=== PATIENT | female | born 1990 | race Caucasian/White ===

== ENCOUNTER 2016-07-11 01:11 | Emergency (ER) | payer MEDICARE, MEDICAID ==
[~2016-07-11 01:11] MED LIST: AMOXICILLIN 50500 MG PO; ATENOLOL25 MG PO; BACLOFEN10 M1 PO; CELEBREX100 MG PO; CLEOCIN HCL300 MG PO; CLONAZEPAM1 MG PO; CLONAZEPAM2 MG PO; CYMBALTA30 M1 PO; DEXAMETHASONE4 MG PO; DILAUDID4 M1 PO; FLEXERIL PO; FLEXERIL10 MG PO; HALDOL2 MG PO; IMIPRAMINE50 MG; KLONOPIN 1MG1 M1 PO; KLONOPIN1 MG PO; LASIX 20MG TABL20 MG PO; LEVSIN0.125 M1 SL; LIORESAL 1010 MG/TAB PO; LITHIUM 30300 MG/CAP PO; LORAZEPAM0.5 MG PO; LORTAB 5/500 501 TAB PO; LORTAB 7.5/5001 TAB PO; MACROBID 1100 MG/CAP PO; MACRODANTIN50 MG/CA1 PO; MEDROL 4MG DOSPA4 MG PO; METOCLOPRAMIDE10 MG PO; MOTRIN800 MG PO; NAPROSYN500 MG PO; NORCO 325 MG-101 TAB PO; NORCO 325 MG-51 TA1 PO; NORCO 325 MG-51 TAB PO; OMNICEF 300MG300 MG PO; ORPHENADRINE C100 MG PO; OXYBUTYNIN CHLOR5 MG PO; OXYCODONE5 M1 PO; PEN-V500 MG PO; PEN-VK500 MG PO; PERCOCET 325 MG1 TA2 PO; PERCOCET 325 MG1 TAB PO; PERCOCET 7.5/321 TA1 PO; PRILOSEC 20MG20 MG PO; PYRIDIUM200 M1 PO; SEROQUEL 2525 MG/TAB PO; TESSALON PERLE100 M1 PO; TOPROL XL25 MG PO; TOPROL-XL50 MG PO; TRAMADOL HYDRO100 MG PO; TYLENOL 325MG325 MG PO; ULTRAM 50MG TAB50 MG PO; ULTRAM50 MG PO; XANAX 1MG1 MG PO; XANAX0.5 MG PO; XANAX1 MG PO; XANAX2 MG PO; ZANAFLEX2 M1 PO; ZITHROMAX 250M250 MG PO
[2016-07-11 01:14] VITALS: BP 148/91
== END 2016-07-11 01:32 | disposition left against medical advice (07) ==
LOC: ED 01:11
DX: R52 Pain, unspecified (principal); Z91.81 History of falling

== ENCOUNTER 2016-07-14 01:37 | Emergency (ER) | payer MEDICARE, MEDICAID ==
[2016-07-14] MEDS ORDERED: BACLOFEN10 M1 PO (01:44)
[2016-07-14] MEDS ORDERED: ANAPROX DS550 M1 PO (05:47)
[2016-07-14] MEDS ORDERED: KLONOPIN 1MG1 MG PO (05:47)
[2016-07-14 05:55] VITALS: BP 124/71
== END 2016-07-14 05:55 | disposition home or self-care (01) ==
LOC: ED 01:37
DX: R29.810 Facial weakness (principal); F41.9 Anxiety disorder, unspecified; M25.511 Pain in right shoulder; F17.210 Nicotine dependence, cigarettes, uncomplicated

== ENCOUNTER 2016-07-23 17:36 | Emergency (ER) | payer MEDICARE, MEDICAID ==
[~2016-07-23 17:36] MED LIST changes: +ANAPROX DS550 M1 PO; +KLONOPIN 1MG1 MG PO
[2016-07-23 17:46] VITALS: BP 111/75
[2016-07-23] MEDS ORDERED: CLONAZEPAM2 MG PO (17:56)
[2016-07-23] MEDS ORDERED: LEXAPRO 10MG10 MG PO (17:57)
== END 2016-07-23 19:00 | disposition left against medical advice (07) ==
LOC: ED 17:36
DX: R04.2 Hemoptysis (principal); R07.89 Other chest pain; R05 Cough; R06.02 Shortness of breath; F41.9 Anxiety disorder, unspecified; Z91.5 Personal history of self-harm; F17.210 Nicotine dependence, cigarettes, uncomplicated

== ENCOUNTER 2017-04-05 15:39 | Emergency (ER) | payer MEDICARE, MEDICAID ==
[~2017-04-05] VITALS: Ht 162.6 cm; Wt 68.2 kg
[~2017-04-05 15:39] MED LIST changes: +LEXAPRO 10MG10 MG PO
[2017-04-05] MEDS ORDERED: GABAPENTIN TAB600 MG PO (15:50)
[2017-04-05] MEDS ORDERED: POTASSIUM CH2 MEQ/ML PO (17:13)
[2017-04-05 17:45] VITALS: BP 100/67
== END 2017-04-05 17:32 | disposition home or self-care (01) ==
LOC: ED 15:39
DX: E87.6 Hypokalemia (principal); R30.0 Dysuria; E16.2 Hypoglycemia, unspecified; R33.9 Retention of urine, unspecified; G89.29 Other chronic pain; R10.84 Generalized abdominal pain; M54.9 Dorsalgia, unspecified; G47.00 Insomnia, unspecified; F41.9 Anxiety disorder, unspecified
CPT/HCPCS: J7030

== ENCOUNTER 2017-08-02 02:09 | Emergency (ER) | payer MEDICARE, MEDICAID ==
[~2017-08-02 02:09] MED LIST changes: +GABAPENTIN TAB600 MG PO; +POTASSIUM CH2 MEQ/ML PO
[2017-08-02 02:10] VITALS: BP 100/63
== END 2017-08-02 03:10 | disposition left against medical advice (07) ==
LOC: ED 02:09
DX: R07.9 Chest pain, unspecified (principal); Z53.21 Procedure and treatment not carried out due to patient leaving prior to being seen by health care provider; R55 Syncope and collapse; F17.200 Nicotine dependence, unspecified, uncomplicated; F99 Mental disorder, not otherwise specified; Z88.1 Allergy status to other antibiotic agents; Z88.5 Allergy status to narcotic agent; Z88.2 Allergy status to sulfonamides; Z88.8 Allergy status to other drugs, medicaments and biological substances

== ENCOUNTER 2017-09-27 20:55 | Emergency (ER) | payer MEDICARE, MEDICAID ==
[~2017-09-27] VITALS: Ht 162.6 cm; Wt 79.5 kg
[2017-09-27] MEDS ORDERED: DOXYCYCLINE MO100 M2 PO (22:23)
[2017-09-27] MEDS ORDERED: CORLANOR5 MG PO (22:23)
[2017-09-27] MEDS ORDERED: DICLOFENAC SOD50 MG PO (22:24)
[2017-09-27 23:27] VITALS: BP 120/74
== END 2017-09-27 23:27 | disposition home or self-care (01) ==
LOC: ED 20:55
DX: R07.89 Other chest pain (principal); R10.12 Left upper quadrant pain; R07.1 Chest pain on breathing; R05 Cough

== ENCOUNTER 2017-09-30 03:50 | Emergency (ER) | payer MEDICARE, MEDICAID ==
[~2017-09-30] VITALS: Ht 162.6 cm; Wt 79.5 kg
[~2017-09-30 03:50] MED LIST changes: +CORLANOR5 MG PO; +DICLOFENAC SOD50 MG PO; +DOXYCYCLINE MO100 M2 PO
[2017-09-30 04:38] LABS: BASO # 0.1 (0.02-0.10); EOS # 0.3 (0.04-0.40); EOS % 3.1 % (1.0-5.0); HEMATOCRIT 38.8 % (37.0-47.0); LYMPH# 4.3 (1.50-4.00); MEAN CELL VOLUME 97 fl (78-100); MEAN CORPUSCULAR HEMOGLOBIN 32 pg (27-31); MEAN CORPUSCULAR HGB CONC 34 g/dL (33-37); MEAN PLATELET VOLUME 9.9 fl (7.4-10.4); MONO # 0.6 (0.20-0.80); NEU # 3.2 (1.40-6.50); PLATELET COUNT 227 K/mm3 (130-400); RED BLOOD COUNT 4.01 M/mm3 (4.10-5.30); RED CELL DISTRIBUTION WIDTH 13.3 % (11.5-14.5); WHITE BLOOD COUNT 8.5 K/mm3 (4.8-10.8)
[2017-09-30 04:48] LABS: ALBUMIN 3.9 g/dL (3.5-5.0); BUN/CREATININE RATIO 14.1 (6.0-26.0); CALCIUM 8.6 mg/dL (8.4-10.2); POTASSIUM 3.6 mmol/L (3.6-5.0); TOTAL BILIRUBIN 0.2 mg/dL (0.2-1.3); TOTAL PROTEIN 7.4 g/dL (6.3-8.2)
[2017-09-30 05:41] LABS: URINE APPEARANCE CLEAR; URINE BILIRUBIN NEGATIVE (NEGATIVE); URINE BLOOD NEGATIVE (NEGATIVE); URINE COLOR YELLOW; URINE GLUCOSE NEGATIVE (NEGATIVE); URINE KETONE NEGATIVE (NEGATIVE); URINE LEUKOCYTE ESTERASE NEGATIVE (NEGATIVE); URINE NITRATE NEGATIVE (NEGATIVE); URINE PROTEIN(semi-quant) NEGATIVE (NEGATIVE); URINE UROBILINOGEN NORMAL (NORMAL); URINE WBC 0-1 /hpf (0-3)
[2017-09-30 06:40] VITALS: BP 127/70
== END 2017-09-30 06:40 | disposition home or self-care (01) ==
LOC: ED 03:50
PROVIDERS: Nurse Practitioner
DX: R07.9 Chest pain, unspecified (principal); R00.1 Bradycardia, unspecified; F17.200 Nicotine dependence, unspecified, uncomplicated; M26.609 Unspecified temporomandibular joint disorder, unspecified side; R06.02 Shortness of breath; R53.1 Weakness; R07.1 Chest pain on breathing; R53.83 Other fatigue; Z88.1 Allergy status to other antibiotic agents; Z88.5 Allergy status to narcotic agent; Z88.2 Allergy status to sulfonamides; Z88.8 Allergy status to other drugs, medicaments and biological substances
CPT/HCPCS: J7030

== ENCOUNTER 2017-10-27 15:08 | Emergency (ER) | payer MEDICARE, MEDICAID ==
[2017-10-27 15:13] VITALS: BP 125/90
[2017-10-27] MEDS ORDERED: AMOXICILLIN 50500 MG PO (15:20)
[2017-10-27] MEDS ORDERED: GABAPENTIN TAB600 MG PO (15:21)
[2017-10-27] MEDS ORDERED: PREDNISONE20 M1 PO (15:53)
== END 2017-10-27 16:05 | disposition home or self-care (01) ==
LOC: ED 15:08
DX: L50.9 Urticaria, unspecified (principal); T40.4X5A Adverse effect of other synthetic narcotics, initial encounter; F17.200 Nicotine dependence, unspecified, uncomplicated

== ENCOUNTER 2017-11-08 03:30 | Emergency (ER) | payer MEDICARE, MEDICAID ==
[~2017-11-08 03:30] MED LIST changes: +PREDNISONE20 M1 PO
[2017-11-08] MEDS ORDERED: CEPHALEXIN500 M2 PO (03:40)
[2017-11-08] MEDS ORDERED: NORCO 325 MG-51 TA1 PO (04:54)
[2017-11-08] MEDS ORDERED: CLEOCIN HC150 MG/CAP PO (04:54)
[2017-11-08 05:08] VITALS: BP 126/75
== END 2017-11-08 05:08 | disposition home or self-care (01) ==
LOC: ED 03:30
DX: M27.3 Alveolitis of jaws (principal)

== ENCOUNTER 2018-02-10 01:48 | Emergency (ER) | payer MEDICARE, MEDICAID ==
[~2018-02-10 01:48] MED LIST changes: +CEPHALEXIN500 M2 PO; +CLEOCIN HC150 MG/CAP PO
[2018-02-10 03:31] LABS: ALBUMIN 3.9 g/dL (3.5-5.0); BASO # 0.1 (0.02-0.10); CALCIUM 8.7 mg/dL (8.4-10.2); EOS # 0.3 (0.04-0.40); EOS % 3.1 % (1.0-5.0); HEMATOCRIT 38.5 % (37.0-47.0); HEMOGLOBIN 13.1 g/dL (12.5-16.0); LYMPH# 3.2 (1.50-4.00); MEAN CELL VOLUME 99 fl (78-100); MEAN CORPUSCULAR HEMOGLOBIN 34 pg (27-31); MEAN CORPUSCULAR HGB CONC 34 g/dL (33-37); MEAN PLATELET VOLUME 9.9 fl (7.4-10.4); MONO # 0.8 (0.20-0.80); PLATELET COUNT 269 K/mm3 (130-400); POTASSIUM 3.6 mmol/L (3.6-5.0); RED CELL DISTRIBUTION WIDTH 12.7 % (11.5-14.5); TOTAL BILIRUBIN 0.2 mg/dL (0.2-1.3); TOTAL PROTEIN 6.9 g/dL (6.3-8.2); WHITE BLOOD COUNT 8.3 K/mm3 (4.8-10.8)
[2018-02-10 03:32] LABS: PH-URINE 6.5 (5.0 - 8.0); URINE APPEARANCE CLEAR; URINE BILIRUBIN NEGATIVE (NEGATIVE); URINE BLOOD NEGATIVE (NEGATIVE); URINE COLOR LT YELLOW; URINE GLUCOSE NEGATIVE (NEGATIVE); URINE KETONE NEGATIVE (NEGATIVE); URINE LEUKOCYTE ESTERASE NEGATIVE (NEGATIVE); URINE NITRATE NEGATIVE (NEGATIVE); URINE PROTEIN(semi-quant) NEGATIVE (NEGATIVE); URINE UROBILINOGEN NORMAL (NORMAL)
[2018-02-10 03:38] LABS: URINE WBC 0-1 /hpf (0-3)
[2018-02-10] MEDS ORDERED: PHENERGAN 25 TA25 MG PO (04:08)
[2018-02-10 04:15] VITALS: BP 123/90
== END 2018-02-10 04:15 | disposition home or self-care (01) ==
LOC: ED 01:48
PROVIDERS: Physician Assistant
DX: A08.4 Viral intestinal infection, unspecified (principal); F17.210 Nicotine dependence, cigarettes, uncomplicated; Z79.899 Other long term (current) drug therapy
CPT/HCPCS: J2550; J3010; Q9967

== ENCOUNTER 2018-06-30 05:09 | Emergency (ER) | payer MEDICARE, MEDICAID ==
[~2018-06-30 05:09] MED LIST changes: +PHENERGAN 25 TA25 MG PO
[2018-06-30 05:15] VITALS: BP 142/99
[2018-06-30] MEDS ORDERED: KLONOPIN 0.5MG0.5 MG PO (05:21)
== END 2018-06-30 06:38 | disposition left against medical advice (07) ==
LOC: ED 05:09
DX: M54.5 Low back pain (principal); Z53.21 Procedure and treatment not carried out due to patient leaving prior to being seen by health care provider; R07.89 Other chest pain; F41.9 Anxiety disorder, unspecified; F32.9 Major depressive disorder, single episode, unspecified; Z87.442 Personal history of urinary calculi; Z87.448 Personal history of other diseases of urinary system; Z79.899 Other long term (current) drug therapy; F17.200 Nicotine dependence, unspecified, uncomplicated; Z88.1 Allergy status to other antibiotic agents; Z88.5 Allergy status to narcotic agent; Z88.8 Allergy status to other drugs, medicaments and biological substances

== ENCOUNTER 2018-12-11 05:41 | Emergency (ER) | payer MEDICARE, MEDICAID ==
[~2018-12-11 05:41] MED LIST changes: +KLONOPIN 0.5MG0.5 MG PO
[2018-12-11 07:07] LABS: BASO # 0.1 (0.02-0.10); EOS # 0.2 (0.04-0.40); EOS % 2.3 % (1.0-5.0); HEMATOCRIT 41.9 % (37.0-47.0); HEMOGLOBIN 14.1 g/dL (12.5-16.0); LYMPH# 2.9 (1.50-4.00); MEAN CELL VOLUME 97 fl (78-100); MEAN CORPUSCULAR HEMOGLOBIN 33 pg (27-31); MEAN CORPUSCULAR HGB CONC 34 g/dL (33-37); MEAN PLATELET VOLUME 9.9 fl (7.4-10.4); MONO # 0.5 (0.20-0.80); NEU # 3.5 (1.40-6.50); PLATELET COUNT 322 K/mm3 (130-400); RED BLOOD COUNT 4.32 M/mm3 (4.10-5.30); RED CELL DISTRIBUTION WIDTH 13.3 % (11.5-14.5); WHITE BLOOD COUNT 7.3 K/mm3 (4.8-10.8)
[2018-12-11 07:14] LABS: GLUCOSE 105 mg/dL (65-105)
[2018-12-11 07:15] LABS: ALBUMIN 4.4 g/dL (3.5-5.0); CARBON DIOXIDE 22 mmol/L (22-29)
[2018-12-11 07:16] LABS: CALCIUM 9.3 mg/dL (8.3-10.5); SODIUM 139 mmol/L (136-145); TOTAL BILIRUBIN 0.5 mg/dL (0.2-1.2)
[2018-12-11 07:18] LABS: AST-SGOT 19 U/L (5-34)
[2018-12-11 07:19] LABS: ALT/SGPT 19 U/L (0-55)
[2018-12-11 07:21] LABS: TROPONIN-I < 0.03 ng/mL (<0.030)
[2018-12-11 07:27] LABS: URINE APPEARANCE CLEAR; URINE BILIRUBIN NEGATIVE (NEGATIVE); URINE BLOOD NEGATIVE (NEGATIVE); URINE COLOR YELLOW; URINE GLUCOSE NEGATIVE (NEGATIVE); URINE KETONE NEGATIVE (NEGATIVE); URINE LEUKOCYTE ESTERASE NEGATIVE (NEGATIVE); URINE NITRATE NEGATIVE (NEGATIVE); URINE PROTEIN(semi-quant) NEGATIVE (NEGATIVE); URINE UROBILINOGEN NORMAL (NORMAL)
[2018-12-11 08:25] VITALS: BP 123/87
== END 2018-12-11 08:25 | disposition home or self-care (01) ==
LOC: ED 05:41
PROVIDERS: Physician Assistant
DX: M25.562 Pain in left knee (principal); R55 Syncope and collapse; F41.9 Anxiety disorder, unspecified; Z90.89 Acquired absence of other organs; Z88.1 Allergy status to other antibiotic agents; W10.9XXA Fall (on) (from) unspecified stairs and steps, initial encounter

== ENCOUNTER 2019-03-12 05:58 | Emergency (ER) | payer MEDICARE, MEDICAID ==
[2019-03-12] MEDS ORDERED: AMBIEN5 M1 PO (06:08)
[2019-03-12 08:28] VITALS: BP 124/87
== END 2019-03-12 08:29 | disposition home or self-care (01) ==
LOC: ED 05:58
DX: S91.311A Laceration without foreign body, right foot, initial encounter (principal); F41.9 Anxiety disorder, unspecified; F32.9 Major depressive disorder, single episode, unspecified; Z23 Encounter for immunization; W27.2XXA Contact with scissors, initial encounter; W20.8XXA Other cause of strike by thrown, projected or falling object, initial encounter; Y93.G1 Activity, food preparation and clean up; Y92.000 Kitchen of unspecified non-institutional (private) residence as the place of occurrence of the external cause
CPT/HCPCS: 90715

== ENCOUNTER 2019-03-25 11:49 | Emergency (ER) | payer MEDICARE, MEDICAID ==
[~2019-03-25 11:49] MED LIST changes: +AMBIEN5 M1 PO
[2019-03-25 12:02] VITALS: BP 144/110
== END 2019-03-25 12:04 | disposition home or self-care (01) ==
LOC: ED 11:49
DX: S91.311D Laceration without foreign body, right foot, subsequent encounter (principal)

== ENCOUNTER 2019-05-06 23:40 | Emergency (ER) | payer MEDICARE, MEDICAID ==
[~2019-05-06] VITALS: Ht 154.9 cm; Wt 99.4 kg
[2019-05-06] MEDS ORDERED: REMERON15 MG PO (23:50)
[2019-05-06] MEDS ORDERED: SERTRALINE HYD100 MG PO (23:50)
[2019-05-06] MEDS ORDERED: KLONOPIN 1MG1 MG PO (23:51)
[2019-05-06] MEDS ORDERED: MACROBID 100 M100 MG PO (23:51)
[2019-05-07 01:40] VITALS: BP 115/81
== END 2019-05-07 01:40 | disposition home or self-care (01) ==
LOC: ED 23:40
DX: F43.9 Reaction to severe stress, unspecified (principal); F91.9 Conduct disorder, unspecified; F41.9 Anxiety disorder, unspecified; F32.9 Major depressive disorder, single episode, unspecified; F17.210 Nicotine dependence, cigarettes, uncomplicated

== ENCOUNTER 2019-05-10 00:17 | Emergency (ER) | payer MEDICARE, MEDICAID ==
[~2019-05-10] VITALS: Ht 152.4 cm; Wt 98.6 kg
[~2019-05-10 00:17] MED LIST changes: +MACROBID 100 M100 MG PO; +REMERON15 MG PO; +SERTRALINE HYD100 MG PO
[2019-05-10] MEDS ORDERED: LORAZEPAM1 M1 PO (00:25)
[2019-05-10] MEDS ORDERED: MINIPRESS 1M1 MG/CAP PO (00:25)
[2019-05-10 01:39] VITALS: BP 145/82
== END 2019-05-10 01:40 | disposition home or self-care (01) ==
LOC: ED 00:17
DX: G44.209 Tension-type headache, unspecified, not intractable (principal); F32.9 Major depressive disorder, single episode, unspecified; F41.9 Anxiety disorder, unspecified; G47.00 Insomnia, unspecified; Z72.89 Other problems related to lifestyle; Z88.1 Allergy status to other antibiotic agents; Z88.6 Allergy status to analgesic agent; Z88.8 Allergy status to other drugs, medicaments and biological substances

== ENCOUNTER 2019-05-28 00:09 | Emergency (ER) | payer MEDICARE, MEDICAID ==
[~2019-05-28 00:09] MED LIST changes: +LORAZEPAM1 M1 PO; +MINIPRESS 1M1 MG/CAP PO
[2019-05-28] MEDS ORDERED: BACLOFEN5 MG PO (00:28)
[2019-05-28 01:10] LABS: BASO # 0.1 (0.02-0.10); EOS # 0.3 (0.04-0.40); EOS % 2.7 % (1.0-5.0); HEMOGLOBIN 14.1 g/dL (12.5-16.0); LYMPH# 3.1 (1.50-4.00); MEAN CELL VOLUME 95 fl (78-100); MEAN CORPUSCULAR HEMOGLOBIN 32 pg (27-31); MEAN CORPUSCULAR HGB CONC 34 g/dL (33-37); MEAN PLATELET VOLUME 9.6 fl (7.4-10.4); MONO # 0.7 (0.20-0.80); NEU # 5.1 (1.40-6.50); PLATELET COUNT 399 K/mm3 (130-400); RED BLOOD COUNT 4.43 M/mm3 (4.10-5.30); RED CELL DISTRIBUTION WIDTH 13.6 % (11.5-14.5); WHITE BLOOD COUNT 9.2 K/mm3 (4.8-10.8)
[2019-05-28 01:13] LABS: ALBUMIN 4.4 g/dL (3.5-5.0); SODIUM 142 mmol/L (136-145)
[2019-05-28 01:15] LABS: CALCIUM 9.5 mg/dL (8.3-10.5)
[2019-05-28 01:16] LABS: GLUCOSE 108 mg/dL (65-105)
[2019-05-28 01:17] LABS: CARBON DIOXIDE 19 mmol/L (22-29)
[2019-05-28 01:18] LABS: TOTAL BILIRUBIN 0.3 mg/dL (0.2-1.2)
[2019-05-28 01:19] LABS: ALCOHOL IN-HOUSE 99 mg/dL (<10)
[2019-05-28 01:21] LABS: AST-SGOT 22 U/L (5-34)
[2019-05-28 01:23] LABS: ALT/SGPT 26 U/L (0-55)
[2019-05-28 01:44] LABS: ACETAMINOPHEN < 1 ug/mL
[2019-05-28 04:33] VITALS: BP 125/84
== END 2019-05-28 04:56 | disposition short-term general hospital (02) ==
LOC: ED 00:09
PROVIDERS: Nurse Practitioner Family
DX: T42.8X2A Poisoning by antiparkinsonism drugs and other central muscle-tone depressants, intentional self-harm, initial encounter (principal); F32.9 Major depressive disorder, single episode, unspecified; F41.9 Anxiety disorder, unspecified; F17.210 Nicotine dependence, cigarettes, uncomplicated
CPT/HCPCS: J7030

== ENCOUNTER 2020-07-04 16:29 | Emergency (ER) | payer MEDICARE, MEDICAID ==
[~2020-07-04 16:29] MED LIST changes: +BACLOFEN5 MG PO
[2020-07-04] MEDS ORDERED: FLUOXETINE HCL20 MG PO (16:45)
[2020-07-04 18:46] LABS: EOS % 0.4 % (1.0-5.0); HEMATOCRIT 40.5 % (37.0-47.0); HEMOGLOBIN 13.5 g/dL (12.5-16.0); LYMPH# 2.3 (1.50-4.00); MEAN CELL VOLUME 91 fl (78-100); MEAN CORPUSCULAR HEMOGLOBIN 30 pg (27-31); MEAN CORPUSCULAR HGB CONC 33 g/dL (33-37); MEAN PLATELET VOLUME 9.3 fl (7.4-10.4); MONO # 0.5 (0.20-0.80); NEU # 4.9 (1.40-6.50); PLATELET COUNT 304 K/mm3 (130-400); RED BLOOD COUNT 4.47 M/mm3 (4.10-5.30); WHITE BLOOD COUNT 7.8 K/mm3 (4.8-10.8)
[2020-07-04 18:55] LABS: ALBUMIN 4.6 g/dL (3.5-5.0); POTASSIUM 3.9 mmol/L (3.5-5.1)
[2020-07-04 18:56] LABS: CALCIUM 9.6 mg/dL (8.3-10.5)
[2020-07-04 18:57] LABS: TOTAL PROTEIN 7.8 g/dL (6.4-8.3)
[2020-07-04 18:59] LABS: TOTAL BILIRUBIN 0.4 mg/dL (0.2-1.2)
[2020-07-04 20:06] LABS: D-DIMER 0.02 mg/L FEU (0.15-0.50)
[2020-07-04] MEDS ORDERED: ATIVAN0.5 MG PO (20:49)
[2020-07-04 21:26] VITALS: BP 170/103
[2020-07-08] MEDS ORDERED: HYDROXYZINE HYD50 M1 PO (02:35)
[2020-07-08] MEDS ORDERED: ARIPIPRAZOLE10 M1 PO (02:35)
== END 2020-07-04 21:25 | disposition home or self-care (01) ==
LOC: ED 16:29
PROVIDERS: Physician Assistant
DX: F41.9 Anxiety disorder, unspecified (principal); Z81.8 Family history of other mental and behavioral disorders; Z88.6 Allergy status to analgesic agent; Z88.2 Allergy status to sulfonamides; Z88.1 Allergy status to other antibiotic agents; Z88.8 Allergy status to other drugs, medicaments and biological substances

== ENCOUNTER 2020-07-24 03:08 | Emergency (ER) | payer MEDICARE, MEDICAID ==
[~2020-07-24] VITALS: Ht 162.6 cm; Wt 103.2 kg
[~2020-07-24 03:08] MED LIST changes: +ARIPIPRAZOLE10 M1 PO; +ATIVAN0.5 MG PO; +FLUOXETINE HCL20 MG PO; +HYDROXYZINE HYD50 M1 PO
[2020-07-24] MEDS ORDERED: BACLOFEN10 M1 PO (03:24)
[2020-07-24] MEDS ORDERED: ATIVAN2 MG PO (03:24)
[2020-07-24] MEDS ORDERED: LABETALOL HCL100 MG PO (03:26)
[2020-07-24 04:45] VITALS: BP 126/84
== END 2020-07-24 04:45 | disposition home or self-care (01) ==
LOC: ED 03:08
DX: F41.8 Other specified anxiety disorders (principal); F32.9 Major depressive disorder, single episode, unspecified; F43.10 Post-traumatic stress disorder, unspecified; Z88.1 Allergy status to other antibiotic agents; Z88.2 Allergy status to sulfonamides; Z88.5 Allergy status to narcotic agent; Z88.6 Allergy status to analgesic agent; Z88.8 Allergy status to other drugs, medicaments and biological substances

== ENCOUNTER 2020-07-26 03:43 | Emergency (ER) | payer MEDICARE, MEDICAID ==
[~2020-07-26 03:43] MED LIST changes: +ATIVAN2 MG PO; +LABETALOL HCL100 MG PO
[2020-07-26 04:57] VITALS: BP 133/89
== END 2020-07-26 04:58 | disposition home or self-care (01) ==
LOC: ED 03:43
DX: S51.812A Laceration without foreign body of left forearm, initial encounter (principal); Z88.1 Allergy status to other antibiotic agents; Z88.2 Allergy status to sulfonamides; Z88.6 Allergy status to analgesic agent; Z88.8 Allergy status to other drugs, medicaments and biological substances; X15.0XXA Contact with hot stove (kitchen), initial encounter

== ENCOUNTER 2020-08-05 11:41 | Emergency (ER) | payer MEDICARE, MEDICAID ==
[~2020-08-05] VITALS: Wt 106.1 kg
[~2020-08-05 11:41] MED LIST changes: -ROXICODONE 55 MG/TAB PO
[2020-08-05] MEDS ORDERED: CLONAZEPAM2 MG PO (12:00)
[2020-08-05] MEDS ORDERED: ROXICODONE 55 MG/TAB PO (12:00)
[2020-08-05 12:54] LABS: EOS # 0.2 (0.04-0.40); EOS % 2.7 % (1.0-5.0); HEMATOCRIT 39.5 % (37.0-47.0); HEMOGLOBIN 12.8 g/dL (12.5-16.0); LYMPH# 1.4 (1.50-4.00); MEAN CELL VOLUME 95 fl (78-100); MEAN CORPUSCULAR HEMOGLOBIN 31 pg (27-31); MEAN CORPUSCULAR HGB CONC 32 g/dL (33-37); MEAN PLATELET VOLUME 9.9 fl (7.4-10.4); MONO # 0.7 (0.20-0.80); NEU # 5.5 (1.40-6.50); PLATELET COUNT 289 K/mm3 (130-400); RED BLOOD COUNT 4.15 M/mm3 (4.10-5.30); RED CELL DISTRIBUTION WIDTH 14.4 % (11.5-14.5); WHITE BLOOD COUNT 7.9 K/mm3 (4.8-10.8)
[2020-08-05 13:30] LABS: PH-URINE 5.5 (5.0 - 8.0); URINE APPEARANCE CLEAR; URINE COLOR YELLOW; URINE PROTEIN(semi-quant) TRACE mg/dL (NEGATIVE)
[2020-08-05 13:31] LABS: URINE BILIRUBIN NEGATIVE (NEGATIVE); URINE BLOOD 50 ery/uL (NEGATIVE); URINE GLUCOSE NEGATIVE (NEGATIVE); URINE KETONE 1+ (NEGATIVE); URINE LEUKOCYTE ESTERASE 2+ (NEGATIVE); URINE NITRATE POSITIVE (NEGATIVE); URINE UROBILINOGEN NORMAL (NORMAL)
[2020-08-05 13:38] LABS: URINE WBC >50 /hpf (0-3)
[2020-08-05] MEDS ORDERED: MACROBID 100 M100 MG PO (13:51)
[2020-08-05 14:04] VITALS: BP 136/87
== END 2020-08-05 14:10 | disposition home or self-care (01) ==
LOC: ED 11:41
PROVIDERS: Family Medicine
DX: M79.632 Pain in left forearm (principal); N39.0 Urinary tract infection, site not specified

== ENCOUNTER → 2020-08-05 | Outpatient (CLI) | payer MEDICARE, MEDICAID ==
[~2020-08-05] MED LIST changes: -FLUOXETINE HCL20 MG PO; +FLUOXETINE40 MG PO; +ROXICODONE 55 MG/TAB PO
[2020-08-05 11:46] VITALS: BP 133/86
== END ==
LOC: LAB 13:19
DX: R82.5 Elevated urine levels of drugs, medicaments and biological substances (principal)

== ENCOUNTER 2020-08-13 05:50 | Emergency (ER) | payer MEDICARE, MEDICAID ==
[~2020-08-13 05:50] MED LIST changes: +ROXICODONE 55 MG/TAB PO
[2020-08-13] MEDS ORDERED: HYDROXYZINE HYD50 M1 PO (06:07)
[2020-08-13] MEDS ORDERED: PROZAC20 M1 PO (06:08)
[2020-08-13 07:10] LABS: EOS # 0.1 (0.04-0.40); EOS % 1.5 % (1.0-5.0); HEMATOCRIT 40.6 % (37.0-47.0); HEMOGLOBIN 13.1 g/dL (12.5-16.0); LYMPH# 1.8 (1.50-4.00); MEAN CELL VOLUME 95 fl (78-100); MEAN CORPUSCULAR HEMOGLOBIN 31 pg (27-31); MEAN CORPUSCULAR HGB CONC 32 g/dL (33-37); MEAN PLATELET VOLUME 10.4 fl (7.4-10.4); MONO # 0.9 (0.20-0.80); NEU # 5.5 (1.40-6.50); PLATELET COUNT 334 K/mm3 (130-400); RED BLOOD COUNT 4.26 M/mm3 (4.10-5.30); RED CELL DISTRIBUTION WIDTH 14.4 % (11.5-14.5); WHITE BLOOD COUNT 8.4 K/mm3 (4.8-10.8)
[2020-08-13 07:18] LABS: ALBUMIN 4.3 g/dL (3.5-5.0); POTASSIUM 3.7 mmol/L (3.5-5.1); SODIUM 142 mmol/L (136-145)
[2020-08-13 07:19] LABS: CALCIUM 9.7 mg/dL (8.3-10.5)
[2020-08-13 07:21] LABS: GLUCOSE 88 mg/dL (65-105); TOTAL PROTEIN 7.6 g/dL (6.4-8.3)
[2020-08-13 07:22] LABS: CARBON DIOXIDE 24 mmol/L (22-29); TOTAL BILIRUBIN 0.2 mg/dL (0.2-1.2)
[2020-08-13 07:25] LABS: PH-URINE 6.5 (5.0 - 8.0); URINE APPEARANCE HAZY; URINE BILIRUBIN NEGATIVE (NEGATIVE); URINE BLOOD TRACE (NEGATIVE); URINE COLOR LT YELLOW; URINE GLUCOSE NEGATIVE (NEGATIVE); URINE KETONE NEGATIVE (NEGATIVE); URINE LEUKOCYTE ESTERASE TRACE (NEGATIVE); URINE NITRATE NEGATIVE (NEGATIVE); URINE PROTEIN(semi-quant) NEGATIVE (NEGATIVE); URINE UROBILINOGEN NORMAL (NORMAL); URINE WBC 0-1 /hpf (0-3)
[2020-08-13 07:26] LABS: ALCOHOL IN-HOUSE < 10 mg/dL (<10); AST-SGOT 21 U/L (5-34)
[2020-08-13 07:27] LABS: ALT/SGPT 14 U/L (0-55)
[2020-08-13 07:57] LABS: ACETAMINOPHEN < 1 ug/mL
[2020-08-13 10:56] VITALS: BP 139/89
== END 2020-08-13 10:06 | disposition short-term general hospital (02) ==
LOC: ED 05:50
PROVIDERS: Family Medicine
DX: T43.592A Poisoning by other antipsychotics and neuroleptics, intentional self-harm, initial encounter (principal); T42.8X2A Poisoning by antiparkinsonism drugs and other central muscle-tone depressants, intentional self-harm, initial encounter; T42.4X2A Poisoning by benzodiazepines, intentional self-harm, initial encounter; T40.2X2A Poisoning by other opioids, intentional self-harm, initial encounter; F43.23 Adjustment disorder with mixed anxiety and depressed mood; Z20.822 Contact with and (suspected) exposure to COVID-19
CPT/HCPCS: J2310

== ENCOUNTER 2020-08-20 02:45 | Emergency (ER) | payer MEDICARE, MEDICAID ==
[~2020-08-20 02:45] MED LIST changes: +PROZAC20 M1 PO
[2020-08-20] MEDS ORDERED: BUSPAR 15MG TAB15 MG PO (03:06)
[2020-08-20] MEDS ORDERED: WELLBUTRIN SR150 M3 PO (03:07)
[2020-08-20 04:13] LABS: HEMATOCRIT 44.5 % (37.0-47.0); HEMOGLOBIN 15.2 g/dL (12.5-16.0); MEAN CELL VOLUME 91 fl (78-100); MEAN CORPUSCULAR HEMOGLOBIN 31 pg (27-31); RED BLOOD COUNT 4.89 M/mm3 (4.10-5.30); WHITE BLOOD COUNT 11.8 K/mm3 (4.8-10.8)
[2020-08-20 04:14] LABS: EOS # 0.4 (0.04-0.40); EOS % 3.4 % (1.0-5.0); LYMPH# 3.8 (1.50-4.00); MEAN CORPUSCULAR HGB CONC 34 g/dL (33-37); MEAN PLATELET VOLUME 10.4 fl (7.4-10.4); MONO # 1.1 (0.20-0.80); NEU # 6.5 (1.40-6.50); PLATELET COUNT 269 K/mm3 (130-400); RED CELL DISTRIBUTION WIDTH 12.9 % (11.5-14.5)
[2020-08-20] MEDS ORDERED: HYDROCODONE AN473 M1 PO (04:32)
[2020-08-20 04:45] VITALS: BP 111/80
== END 2020-08-20 04:45 | disposition home or self-care (01) ==
LOC: ED 02:45
PROVIDERS: Family Medicine
DX: R05 Cough (principal); R13.10 Dysphagia, unspecified; Z88.1 Allergy status to other antibiotic agents; Z88.2 Allergy status to sulfonamides; Z88.6 Allergy status to analgesic agent; Z88.8 Allergy status to other drugs, medicaments and biological substances

== ENCOUNTER 2020-08-23 17:35 | Emergency (ER) | payer MEDICARE, MEDICAID ==
[~2020-08-23 17:35] MED LIST changes: +BUSPAR 15MG TAB15 MG PO; +HYDROCODONE AN473 M1 PO; +WELLBUTRIN SR150 M3 PO
[2020-08-23 18:45] LABS: HEMATOCRIT 41.2 % (37.0-47.0); HEMOGLOBIN 13.8 g/dL (12.5-16.0); RED BLOOD COUNT 4.43 M/mm3 (4.10-5.30); WHITE BLOOD COUNT 9.1 K/mm3 (4.8-10.8)
[2020-08-23 18:46] LABS: MEAN CELL VOLUME 93 fl (78-100); MEAN CORPUSCULAR HEMOGLOBIN 31 pg (27-31); MEAN CORPUSCULAR HGB CONC 34 g/dL (33-37); MEAN PLATELET VOLUME 9.6 fl (7.4-10.4); PLATELET COUNT 347 K/mm3 (130-400); RED CELL DISTRIBUTION WIDTH 13.2 % (11.5-14.5)
[2020-08-23 18:47] LABS: BASO # 0.1 (0.02-0.10); EOS # 0.2 (0.04-0.40); EOS % 2.3 % (1.0-5.0); LYMPH# 3.2 (1.50-4.00); MONO # 0.7 (0.20-0.80)
[2020-08-23 18:50] LABS: POTASSIUM 3.6 mmol/L (3.5-5.1)
[2020-08-23 18:51] LABS: CALCIUM 9.1 mg/dL (8.3-10.5)
[2020-08-23 18:52] LABS: TOTAL PROTEIN 7.2 g/dL (6.4-8.3)
[2020-08-23 18:54] LABS: TOTAL BILIRUBIN 0.4 mg/dL (0.2-1.2)
[2020-08-23] MEDS ORDERED: NYSTATIN 100MU/M1 ML PO (20:12)
[2020-08-23] MEDS ORDERED: HYDROCODONE PO473 ML PO (20:16)
[2020-08-23 20:35] VITALS: BP 123/82
== END 2020-08-23 20:28 | disposition home or self-care (01) ==
LOC: ED 17:35
PROVIDERS: Physician Assistant
DX: B37.9 Candidiasis, unspecified (principal); R05 Cough; E86.0 Dehydration; F41.9 Anxiety disorder, unspecified; F32.9 Major depressive disorder, single episode, unspecified; F43.10 Post-traumatic stress disorder, unspecified; F17.210 Nicotine dependence, cigarettes, uncomplicated; Z88.6 Allergy status to analgesic agent; Z88.1 Allergy status to other antibiotic agents; Z88.8 Allergy status to other drugs, medicaments and biological substances; Z88.2 Allergy status to sulfonamides
CPT/HCPCS: J7030

== ENCOUNTER 2021-01-29 10:46 | Emergency (ER) | payer MEDICARE, MEDICAID ==
[~2021-01-29 10:46] MED LIST changes: +HYDROCODONE PO473 ML PO; +NYSTATIN 100MU/M1 ML PO
[2021-01-29 12:47] VITALS: BP 134/74
== END 2021-01-29 12:43 | disposition home or self-care (01) ==
LOC: ED 10:46
DX: M54.9 Dorsalgia, unspecified (principal); M25.511 Pain in right shoulder; F41.9 Anxiety disorder, unspecified; J45.909 Unspecified asthma, uncomplicated; F17.200 Nicotine dependence, unspecified, uncomplicated

== ENCOUNTER 2022-03-11 01:44 | Emergency (ER) | payer OTHER, MEDICAID ==
[~2022-03-11] VITALS: Ht 162.6 cm; Wt 82.7 kg
[2022-03-11 03:06] LABS: BASO # 0.08 K/mm3 (0.02-0.10); EOS % 2.6 % (1.0-5.0); HEMATOCRIT 41.6 % (37.0-47.0); HEMOGLOBIN 14.1 g/dL (12.5-16.0); LYMPH# 3.13 K/mm3 (1.50-4.00); MEAN CELL VOLUME 90 fl (78-100); MEAN CORPUSCULAR HEMOGLOBIN 31 pg (27-31); MEAN CORPUSCULAR HGB CONC 34 g/dL (33-37); MEAN PLATELET VOLUME 10.8 fl (7.4-10.4); MONO # 0.68 K/mm3 (0.20-0.80); NEU # 3.51 K/mm3 (1.40-6.50); PLATELET COUNT 241 K/mm3 (130-400); RED CELL DISTRIBUTION WIDTH 13.1 % (11.5-14.5); WHITE BLOOD COUNT 7.6 K/mm3 (4.8-10.8)
[2022-03-11 03:19] LABS: CALCIUM 9.1 mg/dL (8.3-10.5)
[2022-03-11 03:21] LABS: TOTAL PROTEIN 6.8 g/dL (6.4-8.3)
[2022-03-11 03:22] LABS: TOTAL BILIRUBIN 0.3 mg/dL (0.2-1.2)
[2022-03-11 03:27] LABS: POTASSIUM 2.8 mmol/L (3.5-5.1)
[2022-03-11 06:45] VITALS: BP 108/81
== END 2022-03-11 07:00 | disposition left against medical advice (07) ==
LOC: ED 01:44
PROVIDERS: Family Medicine
DX: E87.6 Hypokalemia (principal); F32.A Depression, unspecified; F43.20 Adjustment disorder, unspecified; Z88.8 Allergy status to other drugs, medicaments and biological substances; Z28.310 Unvaccinated for COVID-19

== ENCOUNTER 2022-03-12 20:38 | Emergency (ER) | payer OTHER, MEDICAID ==
[2022-03-12 21:56] LABS: ALBUMIN 4.1 g/dL (3.5-5.0); POTASSIUM 3.4 mmol/L (3.5-5.1); SODIUM 141 mmol/L (136-145)
[2022-03-12 21:57] LABS: CALCIUM 9.6 mg/dL (8.3-10.5)
[2022-03-12 21:58] LABS: GLUCOSE 95 mg/dL (65-105); TOTAL PROTEIN 7.1 g/dL (6.4-8.3)
[2022-03-12 21:59] LABS: CARBON DIOXIDE 27 mmol/L (22-29)
[2022-03-12 22:00] LABS: TOTAL BILIRUBIN 0.2 mg/dL (0.2-1.2)
[2022-03-12 22:03] LABS: AST-SGOT 13 U/L (5-34)
[2022-03-12 22:05] LABS: ALT/SGPT 8 U/L (0-55)
[2022-03-12 22:56] LABS: PROTHROMBIN TIME 11.6 SECONDS (9.0-12.0)
[2022-03-13 01:25] LABS: URINE APPEARANCE CLEAR; URINE COLOR STRAW
[2022-03-13 01:26] LABS: URINE BILIRUBIN NEGATIVE (NEGATIVE); URINE BLOOD NEGATIVE (NEGATIVE); URINE GLUCOSE 50 mg/dL (NEGATIVE); URINE KETONE NEGATIVE (NEGATIVE); URINE LEUKOCYTE ESTERASE NEGATIVE (NEGATIVE); URINE NITRATE NEGATIVE (NEGATIVE); URINE PROTEIN(semi-quant) TRACE (NEGATIVE); URINE UROBILINOGEN NORMAL (NORMAL)
[2022-03-13 01:33] LABS: URINE WBC 0-1 /hpf (0-3)
[2022-03-13 01:39] LABS: D-DIMER 0.09 mg/L FEU (0.15-0.50)
[2022-03-13] MEDS ORDERED: PROMETHAZINE12.5 M5 PO (01:46)
[2022-03-13] MEDS ORDERED: PRILOSEC 20MG20 MG PO (01:46)
[2022-03-13 01:56] VITALS: BP 104/85
== END 2022-03-13 01:57 | disposition home or self-care (01) ==
LOC: ED 20:38
PROVIDERS: Physician Assistant
DX: F32.A Depression, unspecified (principal); E87.6 Hypokalemia; R11.2 Nausea with vomiting, unspecified; R77.8 Other specified abnormalities of plasma proteins; F17.200 Nicotine dependence, unspecified, uncomplicated; Z28.310 Unvaccinated for COVID-19
CPT/HCPCS: J2550; J3480; J7030

== ENCOUNTER 2024-03-18 18:51 | Emergency (ER) | payer MEDICARE, MEDICAID ==
[~2024-03-18] VITALS: Wt 82.8 kg
[~2024-03-18 18:51] MED LIST changes: +PROMETHAZINE12.5 M5 PO
[2024-03-18] MEDS ORDERED: ATENOLOL50 MG PO (19:24)
[2024-03-18] MEDS ORDERED: PHENERGAN 25 TA25 MG PO (19:25)
[2024-03-18] MEDS ORDERED: ALPRAZOLAM0.5 MG PO (19:25)
[2024-03-18] MEDS ORDERED: FLUTICASON0.05 MG/Ac NS (19:25)
[2024-03-18] MEDS ORDERED: UBRELVY100 MG PO (19:25)
[2024-03-18 19:30] LABS: BASO # 0.02 K/mm3 (0.02-0.10); EOS # 0.16 K/mm3 (0.04-0.40); EOS % 2.2 % (1.0-5.0); HEMATOCRIT 39.8 % (37.0-47.0); HEMOGLOBIN 13.4 g/dL (12.5-16.0); LYMPH# 2.23 K/mm3 (1.50-4.00); MEAN CELL VOLUME 92 fl (78-100); MEAN CORPUSCULAR HEMOGLOBIN 31 pg (27-31); MEAN CORPUSCULAR HGB CONC 34 g/dL (33-37); MEAN PLATELET VOLUME 10.5 fl (7.4-10.4); MONO # 0.61 K/mm3 (0.20-0.80); NEU # 4.25 K/mm3 (1.40-6.50); PLATELET COUNT 269 K/mm3 (130-400); RED BLOOD COUNT 4.33 M/mm3 (4.10-5.30); RED CELL DISTRIBUTION WIDTH 12.5 % (11.5-14.5); WHITE BLOOD COUNT 7.3 K/mm3 (4.8-10.8)
[2024-03-18 19:37] LABS: SODIUM 138 mmol/L (136-145)
[2024-03-18 19:38] LABS: CALCIUM 9.1 mg/dL (8.3-10.5)
[2024-03-18 19:39] LABS: GLUCOSE 102 mg/dL (65-105)
[2024-03-18 19:40] LABS: TOTAL PROTEIN 6.9 g/dL (6.4-8.3)
[2024-03-18 19:41] LABS: CARBON DIOXIDE 19 mmol/L (22-29); TOTAL BILIRUBIN 0.3 mg/dL (0.2-1.2)
[2024-03-18 19:45] LABS: AST-SGOT 15 U/L (5-34)
[2024-03-18 19:46] LABS: ALT/SGPT 10 U/L (0-55)
[2024-03-18 19:53] LABS: TROPONIN-I < 0.030 ng/mL (0.00-0.033)
[2024-03-18] MEDS ORDERED: NS 1,000 ML IV SCH (20:15)
[2024-03-18 21:15] VITALS: BP 136/90
== END 2024-03-18 21:15 | disposition home or self-care (01) ==
LOC: ED 18:51
PROVIDERS: Nurse Practitioner
DX: R00.1 Bradycardia, unspecified (principal); R42 Dizziness and giddiness
CPT/HCPCS: J7030

== ENCOUNTER → 2024-05-06 | Emergency (ER) | payer MEDICARE, MEDICAID ==
[~2024-05-06] MED LIST changes: +ALPRAZOLAM0.5 MG PO; +ATENOLOL50 MG PO; +FLUTICASON0.05 MG/Ac NS; +UBRELVY100 MG PO
[2024-05-06 21:19] LABS: ALT/SGPT 10 U/L (0-55); AST-SGOT 15 U/L (5-34); CALCIUM 8.8 mg/dL (8.3-10.5); CARBON DIOXIDE 23 mmol/L (22-29); GLUCOSE 89 mg/dL (65-105); SODIUM 139 mmol/L (136-145); TOTAL BILIRUBIN 0.5 mg/dL (0.2-1.2); TOTAL PROTEIN 6.9 g/dL (6.4-8.3); TROPONIN-I < 0.030 ng/mL (0.00-0.033)
[2024-05-06 21:26] LABS: BASO # 0.04 K/mm3 (0.02-0.10); EOS # 0.25 K/mm3 (0.04-0.40); EOS % 3.7 % (1.0-5.0); HEMATOCRIT 38.2 % (37.0-47.0); HEMOGLOBIN 12.7 g/dL (12.5-16.0); LYMPH# 2.28 K/mm3 (1.50-4.00); MEAN CELL VOLUME 94 fl (78-100); MEAN CORPUSCULAR HEMOGLOBIN 31 pg (27-31); MEAN CORPUSCULAR HGB CONC 33 g/dL (33-37); MEAN PLATELET VOLUME 10.2 fl (7.4-10.4); MONO # 0.51 K/mm3 (0.20-0.80); NEU # 3.66 K/mm3 (1.40-6.50); PLATELET COUNT 264 K/mm3 (130-400); RED BLOOD COUNT 4.06 M/mm3 (4.10-5.30); RED CELL DISTRIBUTION WIDTH 12.6 % (11.5-14.5); WHITE BLOOD COUNT 6.8 K/mm3 (4.8-10.8)
== END ==
LOC: ED 18:19
PROVIDERS: Nurse Practitioner
DX: I49.5 Sick sinus syndrome (principal); F41.9 Anxiety disorder, unspecified